=== PATIENT | female | born 1970 | race Two or more races ===

== ENCOUNTER 2024-03-23 18:53 | Emergency (ER) | payer OTHER ==
[~2024-03-23] VITALS: Ht 160 cm; Wt 81.6 kg
[~2024-03-23 18:53] MED LIST: CYNBALTA; PREDNISONE IN5 MG/ML; PROTONIX40 MG; [UNRECOGNIZED DRUG - OTHER]
[2024-03-23] MEDS ORDERED: ZEPBOUND5 MG/0.5 M SQ (19:37)
[2024-03-23] MEDS ORDERED: ZOLOFT50 MG PO (19:38)
[2024-03-23] MEDS ORDERED: PROMETHAZINE HCL 25 MG/ML AMPUL IM ONE (20:00)
[2024-03-23] MEDS ORDERED: PANTOPRAZOLE SODIUM 40 MG/VIAL VIAL IV ONE (20:00)
[2024-03-23] MEDS ORDERED: 0.9 % SODIUM CHLORIDE 1,000 ML IV ONE (20:00)
[2024-03-23 21:52] LABS: HEMATOCRIT 36.7 % (36.0-45.00); HEMOGLOBIN 12.4 g/dL (12.0-15.00); MEAN CELL VOLUME 79.1 fL (80.00-100.00); MEAN CORPUSCULAR HEMOGLOBIN 26.8 pg (27.00-32.0); MEAN CORPUSCULAR HGB CONC 33.9 g/dl (32.0-36.0); PLATELET COUNT 410 K/uL (150-450); RED BLOOD COUNT 4.64 M/uL (4.00-6.00); RED CELL DISTRIBUTION WIDTH 15.4 % (11.5-14.5)
[2024-03-23 22:14] LABS: ALBUMIN 3.7 gm/dL (3.4-5.0); BILIRUBIN TOTAL 0.32 mg/dL (0.3-1.2); CALCIUM 9.2 mg/dL (8.5-10.1); CREATININE SERUM 0.78 mg/dL (0.55-1.02); GFR 76.68; GLOBULINA 4.7 G/DL (2.4-3.5); POTASSIUM 3.56 mEq/L (3.5-5.1); TOTAL PROTEIN 8.4 gm/dL (6.4-8.2)
[2024-03-24] MEDS ORDERED: FAMOTIDINE/PF 20 MG/2 ML VIAL IV PUSH STA (02:34)
[2024-03-24] MEDS ORDERED: HYOSCYAMINE SULFATE 0.125 MG TAB.SUBL SL STA ×2 (02:34→03:55)
[2024-03-24] MEDS ORDERED: PROMETHAZINE HCL 50 MG/ML AMPUL IM STA (02:34)
[2024-03-24] MEDS ORDERED: PROTONIX40 MG PO (06:18)
[2024-03-24] MEDS ORDERED: PHENERGAN25 MG PO (06:18)
[2024-03-24] MEDS ORDERED: FAMOTIDINE40 MG PO (06:18)
[2024-03-24] MEDS ORDERED: LEVSIN/SL0.125 MG SL (06:18)
== END 2024-03-24 06:31 ==
LOC: ER 18:55
PROVIDERS: General Practice
DX: K29.70 Gastritis, unspecified, without bleeding (principal); Z88.8 Allergy status to other drugs, medicaments and biological substances; G43.809 Other migraine, not intractable, without status migrainosus; F41.8 Other specified anxiety disorders; K57.30 Diverticulosis of large intestine without perforation or abscess without bleeding
CPT/HCPCS: 36415; 74176; 76700; 96365; 96372; 99284; J2250; J3490; J7030